=== PATIENT | female | born 1990 | race African-American/Black ===

== ENCOUNTER 2017-03-18 17:12 | Emergency (ER) | payer BC ==
[~2017-03-18] VITALS: Ht 160 cm; Wt 87.1 kg
[~2017-03-18 17:12] MED LIST: BIRTH CONTROL PILLS; IBUPROFEN 600600 M1 PO; MONONESSA1 EACH PO; [UNRECOGNIZED DRUG - CODE]
[2017-03-18] MEDS ORDERED: LUNESTA2 MG PO (17:23)
[2017-03-18 18:37] LABS: ABSOLUTE NEUTROPHILS 3.3 thou/uL (1.4-8.2); BASOPHILS 0.7 % (0.0-2.0); EOSINOPHILS 1.8 % (0.0-3.0); HEMATOCRIT 46.1 % (37.0-47.0); HEMOGLOBIN 15.8 gm/dL (12.0-15.0); MCH 28.7 pg (26.0-34.0); MCHC 34.2 g/dL (28.0-37.0); MONOCYTES 6.7 % (1.0-8.0); PLATELET COUNT 264 thou/uL (150-400); POLYS 65.8 % (36.0-66.0); RBC 5.49 mil/uL (4.20-5.00); RDW 14.2 % (10.5-14.5); WBC 5.1 thou/uL (4.0-11.0)
[2017-03-18 18:38] LABS: MANUAL DIFF NO
[2017-03-18 18:45] LABS: ANION GAP 11 mmol/L (7-16); BUN 10 mg/dL (7-18); CHLORIDE 102 mmol/L (98-107); CO2 27 mmol/L (21-32); CREATININE 1.2 mg/dL (0.6-1.0); GLUCOSE 81 mg/dL (74-106); POTASSIUM 3.7 mmol/L (3.5-5.1); SODIUM 140 mmol/L (136-145)
[2017-03-18 18:51] LABS: ALBUMIN 4.6 g/dL (3.4-5.0); ALKALINE PHOSPHATASE 56 U/L (46-116); DIRECT BILIRUBIN < 0.1 mg/dL (<0.1-0.3); SGOT 21 U/L (15-37); SGPT 18 U/L (30-65); TOTAL BILIRUBIN 0.4 mg/dL (<0.1-1.0); TOTAL PROTEIN 9.3 g/dL (6.4-8.2)
[2017-03-18 18:57] LABS: URINE BILIRUBIN NEGATIVE (Negative); URINE BLOOD NEGATIVE (Negative); URINE COLOR YELLOW; URINE GLUCOSE-RANDOM* NEGATIVE (Negative); URINE KETONES NEGATIVE (Negative); URINE NITRITE NEGATIVE (Negative); URINE PROTEIN (DIPSTICK) NEGATIVE (Negative); URINE UROBILINOGEN 0.2 E.U./dl (0.2-1.0)
[2017-03-18] MEDS ORDERED: NORCO 5-325 TA1 EACH PO (19:11)
[2017-03-18 19:15] VITALS: BP 129/83
== END 2017-03-18 19:24 | disposition home or self-care (01) ==
LOC: ER 17:12
PROVIDERS: Emergency Medicine
DX: R10.84 Generalized abdominal pain (principal); F10.99 Alcohol use, unspecified with unspecified alcohol-induced disorder; F15.10 Other stimulant abuse, uncomplicated